=== PATIENT | male | born 1995 | race Caucasian/White ===

== ENCOUNTER 2019-08-16 22:18 | Emergency (ER) | payer OTHER ==
[~2019-08-16] VITALS: Ht 193 cm; Wt 120.7 kg
[2019-08-16 22:32] VITALS: BP 160/92; Ht 193 cm; Wt 120.7 kg
== END 2019-08-16 23:44 | disposition home or self-care (01) ==
LOC: ED 22:18
DX: L03.115 Cellulitis of right lower limb (principal); Z88.1 Allergy status to other antibiotic agents